=== PATIENT | female | born 1945 | race Caucasian/White ===

== ENCOUNTER 2017-09-19 08:04 | Outpatient (CLI) | payer OTHER | END 2017-09-19 08:09 | disposition home or self-care (01) | LOC: SONOGRAMA 08:04 | DX: E04.1 Nontoxic single thyroid nodule (principal) ==

== ENCOUNTER 2020-01-14 08:04 | Outpatient (CLI) | payer OTHER | END 2020-01-14 08:08 | disposition home or self-care (01) | LOC: SONOGRAMA 08:04 | PROVIDERS: ATTEND Pathology Anatomic Pathology & Clinical Pathology | DX: E03.8 Other specified hypothyroidism (principal) ==

== ENCOUNTER 2023-08-08 08:12 | Outpatient (CLI) | payer OTHER | END 2023-08-08 08:14 | disposition home or self-care (01) | LOC: SONOGRAMA 08:12 | PROVIDERS: ATTEND Pathology Anatomic Pathology & Clinical Pathology | DX: D34 Benign neoplasm of thyroid gland (principal); E07.89 Other specified disorders of thyroid; E04.1 Nontoxic single thyroid nodule ==